=== PATIENT | female | born 1960 | race Caucasian/White ===

== ENCOUNTER 2017-09-25 13:46 | Inpatient (IN) | payer OTHER ==
[2017-09-25 14:30] LABS: AADO2 Arterial 78.2 mmHg (7.0-24.0); Allen Test ACCEPTAB; Arterial Base Excess 6.7 mmol/L (-3.0-3); Arterial Blood Gas Oxygen Sat 98.5 mmHG (95.0-98.0); Arterial COHb 0.3 % (0.0-3.0); Arterial Fraction of Oxyhgb 97.8 % (93.0-99.0); Arterial HCO3 31.5 mmol/L (22.0-26.0); Arterial MetHb 0.4 % (0.0-1.5); Arterial Total Hemglobin 8.8 g/dl (12.0-18.0); Arterial pCO2 46.9 mmhg (35-45); MODE VENTI-COLLAR; Site Right Radial
[2017-09-25] MEDS: SODIUM CHLORIDE 0.9% 1L BAG IV* (14:39)
[2017-09-25 14:42] LABS: ADD MAN DIFF? NO
[2017-09-25 14:47] LABS: WHITE BLOOD COUNT 9.6 10^3/ul (4.8-10.8)
[2017-09-25 14:47] LABS: BASOPHILS % 0.3 % (0.0-2.0); EOSINOPHILS % 0.2 % (0.0-7.0); HEMATOCRIT 24.7 % (37.0-47.0); HEMOGLOBIN 8.4 g/dl (12.0-16.0); LYMPHOCYTES % 20.5 % (15.0-51.0); MEAN CORPUSCULAR HEMOGLOBIN 31.7 pg (29.0-33.0); MEAN CORPUSCULAR VOLUME 93.2 fl (82.0-101.0); MONOCYTE # 0.7 10^3/ul (0.3-0.9); MONOCYTES % 7.4 % (0.0-11.0); NEUTROPHIL # 6.8 10^3/ul (1.6-7.5); NEUTROPHILS % 71.2 % (39.0-77.0); PLATELET COUNT 341 10^3/UL (140-415); RED BLOOD COUNT 2.65 10^6/ul (4.20-5.40); RED CELL DISTRIBUTION WIDTH 12.2 % (11.5-14.5)
[2017-09-25 15:06] LABS: INR 0.83; PROTIME 11.5 Sec (11.9-14.9); PT RATIO 0.9
[2017-09-25 15:07] LABS: PARTIAL THROMBOPLASTIN TIME 26.5 Sec (25.0-35.0)
[2017-09-25 15:15] LABS: ALANINE AMINOTRANSFERASE 47 IU/L (13-69); ALBUMIN 3.7 g/dl (3.3-4.9); ALBUMIN/GLOBULIN RATIO 1.05; ALKALINE PHOSPHATASE 178 IU/L (42-121); ANION GAP 13 (8-16); ASPARTATE AMINO TRANSFERASE 24 IU/L (15-46); BILIRUBIN,INDIRECT 0.1 mg/dl (0-1.1); BILIRUBIN,TOTAL 0.1 mg/dl (0.2-1.3); BLOOD UREA NITROGEN 51 mg/dl (7-20); CALCIUM 10.6 mg/dl (8.4-10.2); CARBON DIOXIDE 32 mmol/L (21-31); CHLORIDE 94 mmol/L (97-110); CREATININE 2.07 mg/dl (0.44-1.00); GLUCOSE 193 mg/dl (70-220); SODIUM 135 mmol/L (135-144); TOTAL PROTEIN 7.2 g/dl (6.1-8.1)
[2017-09-25 15:16] LABS: LACTIC ACID 2.2 mmol/L (0.5-2.0)
[2017-09-25 15:29] LABS: TROPONIN-I < 0.012 ng/ml (0.00-0.12)
[2017-09-25 16:01] LABS: ADD UMIC YES; UR ASCORBIC ACID 20 mg/dL (NEGATIVE); UR BACTERIA FEW /HPF (NONE SEEN); UR BILIRUBIN (Dip) NEGATIVE (NEGATIVE); UR BLOOD (Dip) NEGATIVE (NEGATIVE); UR CLARITY CLOUDY (CLEAR); UR COLOR YELLOW (YELLOW); UR GLUCOSE (Dip) NEGATIVE (NEGATIVE); UR KETONES (Dip) NEGATIVE (NEGATIVE); UR LEUKOCYTE ESTERASE (Dip) 3+ Leu/ul (NEGATIVE); UR NITRITE (Dip) NEGATIVE (NEGATIVE); UR RBC 0 /HPF (0-5); UR SPECIFIC GRAVITY (Dip) 1.005 (1.003-1.030); UR TOTAL PROTEIN (Dip) 2+ mg/dl (NEGATIVE); UR UROBILINOGEN (Dip) NEGATIVE (NEGATIVE); UR WBC 50 /HPF (0-5)
[2017-09-25] MEDS: CEFEPIME 2GM/50 ML (PMX) 50 ML IVPB (16:12)
[2017-09-25] MEDS: VANCOMYCIN 1 GM (PMX) 250 ML IVPB (16:31)
[2017-09-25] MEDS ORDERED: ACETAMINOPHEN 325 MG TAB PO (17:00)
[2017-09-25] MEDS ORDERED: ONDANSETRON 4 MG INJ IV (17:00)
[2017-09-25 17:54] LABS: LACTIC ACID 1.8 mmol/L (0.5-2.0)
[2017-09-25] MEDS ORDERED: NACL 0.9% 3 ML SYG IV (18:30)
[2017-09-25] MEDS ORDERED: MAGNESIUM HYDROXIDE 30ML CUP PO (18:30)
[2017-09-25] MEDS ORDERED: BISACODYL 10 MG SUPP PR (18:30)
[2017-09-25] MEDS ORDERED: VANCOMYCIN IV PER PHARMACY XX (18:30)
[2017-09-25] MEDS: VANCOMYCIN 1 GM in SODIUM CHLORIDE 0.45 % 250 ML IVPB (19:25)
[2017-09-25] MEDS ORDERED: INSULIN ASPART [NOVOLOG] 3 ML PEN SC (21:00)
[2017-09-25] MEDS ORDERED: HEPARIN 1000 UNITS/ML 30 ML INJ SC (21:00)
[2017-09-25] MEDS: METOPROLOL 50 MG TAB GTB (21:00)
[2017-09-25 21:54] LABS: LACTIC ACID 0.8 mmol/L (0.5-2.0)
[2017-09-25] MEDS ORDERED: GLUCOSE GEL 15 GRAM TUBE PO ×2 (22:30)
[2017-09-25] MEDS ORDERED: GLUCOSE GEL 15 GRAM TUBE BUCCAL (22:30)
[2017-09-25] MEDS ORDERED: DEXTROSE 50% 50 ML SYRINGE IV ×2 (22:30)
[2017-09-25] MEDS ORDERED: GLUCAGON 1 MG INJ IM (22:30)
[2017-09-25] MEDS: CHLORHEXIDINE GLUCONATE 15 ML UD CUP MM (22:43)
[2017-09-25] MEDS: SOD CHLORIDE 0.9% 1,000 ML IV (22:43)
[2017-09-25] MEDS: CEFEPIME 1GM/50 ML (PMX) 50 ML IVPB (22:44)
[2017-09-25] MEDS: LACTOBACILLUS RHAMNOSUS CAP PO (23:52)
[2017-09-25] MEDS: HEPARIN 5,000 UNIT/0.5 ML VIAL SC (23:54)
[2017-09-26] MEDS: INSULIN ASPART [NOVOLOG] 3 ML PEN SC ×6 (01:00→20:02)
[2017-09-26] MEDS ORDERED: ACCU-CHEK XX (02:00)
[2017-09-26] MEDS: LANSOPRAZOLE 30 MG CAP GTB (05:39)
[2017-09-26 06:19] LABS: ADD MAN DIFF? NO
[2017-09-26 06:23] LABS: WHITE BLOOD COUNT 7.9 10^3/ul (4.8-10.8)
[2017-09-26 06:23] LABS: BASOPHILS % 0.4 % (0.0-2.0); EOSINOPHILS # 0.1 10^3/ul (0.0-0.5); EOSINOPHILS % 1.3 % (0.0-7.0); HEMATOCRIT 21.7 % (37.0-47.0); HEMOGLOBIN 7.2 g/dl (12.0-16.0); LYMPHOCYTES # 2.3 10^3/ul (0.8-2.9); LYMPHOCYTES % 29.6 % (15.0-51.0); MEAN CORPUSCULAR HEMOGLOBIN 31.7 pg (29.0-33.0); MEAN CORPUSCULAR HGB CONC 33.2 g/dl (32.0-37.0); MEAN CORPUSCULAR VOLUME 95.6 fl (82.0-101.0); MEAN PLATELET VOLUME 10.1 fl (7.4-10.4); MONOCYTE # 0.6 10^3/ul (0.3-0.9); MONOCYTES % 8.2 % (0.0-11.0); NEUTROPHIL # 4.7 10^3/ul (1.6-7.5); NEUTROPHILS % 60.2 % (39.0-77.0); PLATELET COUNT 300 10^3/UL (140-415); RED BLOOD COUNT 2.27 10^6/ul (4.20-5.40); RED CELL DISTRIBUTION WIDTH 12.4 % (11.5-14.5)
[2017-09-26 07:03] LABS: ALBUMIN 3.1 g/dl (3.3-4.9); ANION GAP 11 (8-16); BLOOD UREA NITROGEN 40 mg/dl (7-20); CALCIUM 9.6 mg/dl (8.4-10.2); CARBON DIOXIDE 28 mmol/L (21-31); CHLORIDE 107 mmol/L (97-110); CREATININE 1.83 mg/dl (0.44-1.00); GLUCOSE 181 mg/dl (70-220); MAGNESIUM 1.9 mg/dl (1.7-2.5); PHOSPHORUS 2.3 mg/dl (2.5-4.9); POTASSIUM 3.8 mmol/L (3.5-5.1); SODIUM 142 mmol/L (135-144)
[2017-09-26 07:10] LABS: HEMOGLOBIN A1C 6.2 % (0-5.9)
[2017-09-26] MEDS: METOPROLOL 50 MG TAB GTB ×2 (09:00→20:03)
[2017-09-26] MEDS ORDERED: HEPARIN 5,000 UNIT/0.5 ML VIAL SC (09:00)
[2017-09-26] MEDS: MULTIVIT/CA CARB/B CMPLX/FA TAB PO (09:02)
[2017-09-26] MEDS: LACTOBACILLUS RHAMNOSUS CAP PO ×2 (09:02→20:03)
[2017-09-26] MEDS: CHLORHEXIDINE GLUCONATE 15 ML UD CUP MM ×2 (09:02→20:04)
[2017-09-26] MEDS: ASCORBIC ACID 500 MG TAB GTB (09:02)
[2017-09-26] MEDS: CEFEPIME 1GM/50 ML (PMX) 50 ML IVPB ×2 (09:02→20:04)
[2017-09-26] MEDS: FERROUS SULFATE 60 MG/ML 5ML CUP GTB (09:03)
[2017-09-26] MEDS: HEPARIN 5,000 UNIT/0.5 ML VIAL SC ×2 (09:13→20:08)
[2017-09-26] MEDS: INSULIN GLARGINE [LANtus] 3 ML PEN SC (09:13)
[2017-09-26] MEDS: ACETAMINOPHEN 650MG/20.3ML CUP GTB (09:52)
[2017-09-26 11:46] LABS: IRON 74 ug/dl (35-150)
[2017-09-26 11:55] LABS: % IRON SATURATION 29 % SAT (22-52); TOTAL IRON BINDING CAPACITY 257 ug/dl (241-421)
[2017-09-26] MEDS ORDERED: ACETAMINOPHEN 650 MG SUPP PR (12:00)
[2017-09-26] MEDS: SOD CHLORIDE 0.9% 1,000 ML IV (12:20)
[2017-09-26 16:18] LABS: POTASSIUM,URINE RANDOM 19.7 mmol/L (25-125)
[2017-09-26 16:18] LABS: SODIUM,URINE RANDOM 64 mmol/L (30-90)
[2017-09-26] MEDS ORDERED: VANCOMYCIN 1.25 GM in SODIUM CHLORIDE 0.45 % 250 ML IVPB (17:00)
[2017-09-26] MEDS: VANCOMYCIN 1 GM 250 ML IVPB (17:49)
[2017-09-26 18:44] LABS: OSMOLALITY,URINE 366 mOsm/kg (250-1200)
[2017-09-27] MEDS: INSULIN ASPART [NOVOLOG] 3 ML PEN SC ×6 (01:00→21:00)
[2017-09-27] MEDS: LANSOPRAZOLE 30 MG CAP GTB (05:14)
[2017-09-27] MEDS: SOD CHLORIDE 0.9% 1,000 ML IV ×2 (05:14→20:50)
[2017-09-27 05:59] LABS: ADD MAN DIFF? NO
[2017-09-27 06:09] LABS: WHITE BLOOD COUNT 9.7 10^3/ul (4.8-10.8)
[2017-09-27 06:09] LABS: BASOPHILS % 0.4 % (0.0-2.0); EOSINOPHILS # 0.2 10^3/ul (0.0-0.5); EOSINOPHILS % 1.6 % (0.0-7.0); HEMATOCRIT 23.1 % (37.0-47.0); HEMOGLOBIN 7.5 g/dl (12.0-16.0); LYMPHOCYTES # 2.8 10^3/ul (0.8-2.9); LYMPHOCYTES % 29.4 % (15.0-51.0); MEAN CORPUSCULAR HEMOGLOBIN 31.1 pg (29.0-33.0); MEAN CORPUSCULAR HGB CONC 32.5 g/dl (32.0-37.0); MEAN CORPUSCULAR VOLUME 95.9 fl (82.0-101.0); MEAN PLATELET VOLUME 10.5 fl (7.4-10.4); MONOCYTE # 0.8 10^3/ul (0.3-0.9); MONOCYTES % 8.5 % (0.0-11.0); NEUTROPHIL # 5.8 10^3/ul (1.6-7.5); NEUTROPHILS % 59.8 % (39.0-77.0); PLATELET COUNT 301 10^3/UL (140-415); RED BLOOD COUNT 2.41 10^6/ul (4.20-5.40); RED CELL DISTRIBUTION WIDTH 12.9 % (11.5-14.5)
[2017-09-27 06:48] LABS: ALBUMIN 3.1 g/dl (3.3-4.9); ANION GAP 13 (8-16); BLOOD UREA NITROGEN 36 mg/dl (7-20); CALCIUM 9.9 mg/dl (8.4-10.2); CARBON DIOXIDE 27 mmol/L (21-31); CHLORIDE 110 mmol/L (97-110); CREATININE 1.79 mg/dl (0.44-1.00); GLUCOSE 141 mg/dl (70-220); PHOSPHORUS 2.7 mg/dl (2.5-4.9); POTASSIUM 3.6 mmol/L (3.5-5.1); SODIUM 146 mmol/L (135-144)
[2017-09-27] MEDS: METOPROLOL 50 MG TAB GTB ×2 (09:38→21:00)
[2017-09-27] MEDS: LACTOBACILLUS RHAMNOSUS CAP PO ×2 (09:38→20:55)
[2017-09-27] MEDS: MULTIVIT/CA CARB/B CMPLX/FA TAB PO (09:38)
[2017-09-27] MEDS: CEFEPIME 1GM/50 ML (PMX) 50 ML IVPB (09:39)
[2017-09-27] MEDS: ASCORBIC ACID 500 MG TAB GTB (09:39)
[2017-09-27] MEDS: FERROUS SULFATE 60 MG/ML 5ML CUP GTB (09:39)
[2017-09-27] MEDS: CHLORHEXIDINE GLUCONATE 15 ML UD CUP MM ×2 (09:39→20:55)
[2017-09-27] MEDS: HEPARIN 5,000 UNIT/0.5 ML VIAL SC ×2 (09:50→21:02)
[2017-09-27] MEDS: INSULIN GLARGINE [LANtus] 3 ML PEN SC (09:50)
[2017-09-27] MEDS ORDERED: DAPTOMYCIN 350 MG in SOD CHLORIDE 0.9% 100 ML IVPB (12:00)
[2017-09-27] MEDS ORDERED: AMIKACIN IV PER PHARMACY XX (12:00)
[2017-09-27] MEDS: ZYVOX 600 MG TAB PO ×2 (13:09→21:00)
[2017-09-27] MEDS: AMIKACIN 350 MG in DEXTROSE 5% 100 ML IVPB (15:22)
[2017-09-28] MEDS: SOD CHLORIDE 0.9% 1,000 ML IV ×2 (00:54→17:17)
[2017-09-28] MEDS: INSULIN ASPART [NOVOLOG] 3 ML PEN SC ×6 (01:00→20:49)
[2017-09-28] MEDS: LANSOPRAZOLE 30 MG CAP GTB (05:17)
[2017-09-28 05:58] LABS: ADD MAN DIFF? NO
[2017-09-28 05:59] LABS: WHITE BLOOD COUNT 8.8 10^3/ul (4.8-10.8)
[2017-09-28 05:59] LABS: BASOPHILS % 0.5 % (0.0-2.0); EOSINOPHILS # 0.2 10^3/ul (0.0-0.5); EOSINOPHILS % 2.6 % (0.0-7.0); HEMOGLOBIN 7.7 g/dl (12.0-16.0); LYMPHOCYTES # 3.8 10^3/ul (0.8-2.9); MEAN CORPUSCULAR HEMOGLOBIN 31.6 pg (29.0-33.0); MEAN CORPUSCULAR HGB CONC 33.5 g/dl (32.0-37.0); MEAN CORPUSCULAR VOLUME 94.3 fl (82.0-101.0); MEAN PLATELET VOLUME 10.3 fl (7.4-10.4); MONOCYTE # 0.7 10^3/ul (0.3-0.9); NEUTROPHILS % 45.7 % (39.0-77.0); PLATELET COUNT 303 10^3/UL (140-415); RED BLOOD COUNT 2.44 10^6/ul (4.20-5.40); RED CELL DISTRIBUTION WIDTH 12.7 % (11.5-14.5)
[2017-09-28 06:36] LABS: ALBUMIN 3.1 g/dl (3.3-4.9); ANION GAP 9 (8-16); BLOOD UREA NITROGEN 27 mg/dl (7-20); CARBON DIOXIDE 29 mmol/L (21-31); CHLORIDE 109 mmol/L (97-110); CREATININE 1.64 mg/dl (0.44-1.00); GLUCOSE 122 mg/dl (70-220); MAGNESIUM 1.8 mg/dl (1.7-2.5); PHOSPHORUS 3.4 mg/dl (2.5-4.9); POTASSIUM 3.4 mmol/L (3.5-5.1); SODIUM 144 mmol/L (135-144)
[2017-09-28] MEDS: CHLORHEXIDINE GLUCONATE 15 ML UD CUP MM ×2 (09:13→20:41)
[2017-09-28] MEDS: POTASSIUM CHLORIDE 20 MEQ POWDER FOR ORAL SOLN GTB (09:13)
[2017-09-28] MEDS: ZYVOX 600 MG TAB PO ×2 (09:14→20:41)
[2017-09-28] MEDS: LACTOBACILLUS RHAMNOSUS CAP PO ×2 (09:14→20:41)
[2017-09-28] MEDS: MULTIVIT/CA CARB/B CMPLX/FA TAB PO (09:14)
[2017-09-28] MEDS: ASCORBIC ACID 500 MG TAB GTB (09:14)
[2017-09-28] MEDS: FERROUS SULFATE 60 MG/ML 5ML CUP GTB (09:15)
[2017-09-28] MEDS: METOPROLOL 50 MG TAB GTB ×2 (09:15→20:41)
[2017-09-28] MEDS: HEPARIN 5,000 UNIT/0.5 ML VIAL SC ×2 (09:44→20:49)
[2017-09-28] MEDS: INSULIN GLARGINE [LANtus] 3 ML PEN SC (09:44)
[2017-09-28] MEDS: hydrALAzine 20 MG INJ IV (23:23)
[2017-09-29] MEDS: FUROSEMIDE 20 MG INJ IV (01:48)
[2017-09-29] MEDS: AMIKACIN 350 MG in DEXTROSE 5% 100 ML IVPB (01:49)
[2017-09-29] MEDS: INSULIN ASPART [NOVOLOG] 3 ML PEN SC ×6 (02:05→20:48)
[2017-09-29] MEDS: LANSOPRAZOLE 30 MG CAP GTB (05:16)
[2017-09-29] MEDS: CHLORHEXIDINE GLUCONATE 15 ML UD CUP MM ×2 (08:14→21:49)
[2017-09-29] MEDS: FERROUS SULFATE 60 MG/ML 5ML CUP GTB (08:14)
[2017-09-29] MEDS: ASCORBIC ACID 500 MG TAB GTB (08:14)
[2017-09-29] MEDS: LACTOBACILLUS RHAMNOSUS CAP PO ×2 (08:15→21:49)
[2017-09-29] MEDS: METOPROLOL 50 MG TAB GTB ×2 (08:15→21:49)
[2017-09-29] MEDS: ZYVOX 600 MG TAB PO ×2 (08:15→21:49)
[2017-09-29] MEDS: MULTIVIT/CA CARB/B CMPLX/FA TAB PO (08:15)
[2017-09-29] MEDS: INSULIN GLARGINE [LANtus] 3 ML PEN SC (08:25)
[2017-09-29] MEDS: HEPARIN 5,000 UNIT/0.5 ML VIAL SC ×2 (08:25→21:51)
[2017-09-29] MEDS: ALBUTEROL 0.083% (NEB) 2.5 MG/3 ML AMP NEB (16:02)
[2017-09-30] MEDS: INSULIN ASPART [NOVOLOG] 3 ML PEN SC ×6 (01:00→20:41)
[2017-09-30] MEDS: hydrALAzine 20 MG INJ IV (01:35)
[2017-09-30] MEDS: LANSOPRAZOLE 30 MG CAP GTB (05:41)
[2017-09-30 06:15] LABS: ADD MAN DIFF? NO
[2017-09-30 06:28] LABS: WHITE BLOOD COUNT 9.7 10^3/ul (4.8-10.8)
[2017-09-30 06:28] LABS: BASOPHILS % 0.3 % (0.0-2.0); EOSINOPHILS # 0.2 10^3/ul (0.0-0.5); EOSINOPHILS % 2.3 % (0.0-7.0); HEMATOCRIT 23.8 % (37.0-47.0); HEMOGLOBIN 7.9 g/dl (12.0-16.0); LYMPHOCYTES # 4.6 10^3/ul (0.8-2.9); MEAN CORPUSCULAR HEMOGLOBIN 31.6 pg (29.0-33.0); MEAN CORPUSCULAR HGB CONC 33.2 g/dl (32.0-37.0); MEAN CORPUSCULAR VOLUME 95.2 fl (82.0-101.0); MEAN PLATELET VOLUME 10.8 fl (7.4-10.4); MONOCYTE # 0.8 10^3/ul (0.3-0.9); MONOCYTES % 7.7 % (0.0-11.0); NEUTROPHIL # 4.1 10^3/ul (1.6-7.5); NEUTROPHILS % 42.5 % (39.0-77.0); PLATELET COUNT 318 10^3/UL (140-415); RED CELL DISTRIBUTION WIDTH 13.1 % (11.5-14.5)
[2017-09-30 07:00] LABS: ALBUMIN 3.1 g/dl (3.3-4.9); ANION GAP 13 (8-16); BLOOD UREA NITROGEN 31 mg/dl (7-20); CALCIUM 9.3 mg/dl (8.4-10.2); CARBON DIOXIDE 30 mmol/L (21-31); CHLORIDE 108 mmol/L (97-110); CREATININE 1.77 mg/dl (0.44-1.00); GLUCOSE 148 mg/dl (70-220); MAGNESIUM 1.9 mg/dl (1.7-2.5); PHOSPHORUS 3.7 mg/dl (2.5-4.9); POTASSIUM 3.6 mmol/L (3.5-5.1); SODIUM 147 mmol/L (135-144)
[2017-09-30] MEDS: ZYVOX 600 MG TAB PO ×2 (08:10→20:40)
[2017-09-30] MEDS: MULTIVIT/CA CARB/B CMPLX/FA TAB PO (08:10)
[2017-09-30] MEDS: LACTOBACILLUS RHAMNOSUS CAP PO ×2 (08:10→20:40)
[2017-09-30] MEDS: ASCORBIC ACID 500 MG TAB GTB (08:10)
[2017-09-30] MEDS: FERROUS SULFATE 60 MG/ML 5ML CUP GTB (08:10)
[2017-09-30] MEDS: CHLORHEXIDINE GLUCONATE 15 ML UD CUP MM ×2 (08:10→20:40)
[2017-09-30] MEDS: METOPROLOL 50 MG TAB GTB ×2 (08:12→20:42)
[2017-09-30] MEDS: HEPARIN 5,000 UNIT/0.5 ML VIAL SC ×2 (08:25→20:43)
[2017-09-30] MEDS: INSULIN GLARGINE [LANtus] 3 ML PEN SC (08:25)
[2017-09-30] MEDS: AMLODIPINE 5 MG TAB GTB ×2 (11:26→16:34)
[2017-09-30] MEDS: *AMIKACIN TROUGH & PEAK XX (13:30)
[2017-09-30] MEDS: AMIKACIN 350 MG in DEXTROSE 5% 100 ML IVPB (14:32)
[2017-10-01] MEDS: INSULIN ASPART [NOVOLOG] 3 ML PEN SC ×6 (01:00→21:00)
[2017-10-01] MEDS: LANSOPRAZOLE 30 MG CAP GTB (05:42)
[2017-10-01 06:58] LABS: WHITE BLOOD COUNT 15.1 10^3/ul (4.8-10.8)
[2017-10-01 06:58] LABS: ABNORMAL IP MESSAGE 1; HEMATOCRIT 28.1 % (37.0-47.0); HEMOGLOBIN 9.1 g/dl (12.0-16.0); MEAN CORPUSCULAR HEMOGLOBIN 31.7 pg (29.0-33.0); MEAN CORPUSCULAR HGB CONC 32.4 g/dl (32.0-37.0); MEAN CORPUSCULAR VOLUME 97.9 fl (82.0-101.0); MEAN PLATELET VOLUME 12.1 fl (7.4-10.4); PLATELET COUNT 246 10^3/UL (140-415); RED BLOOD COUNT 2.87 10^6/ul (4.20-5.40); RED CELL DISTRIBUTION WIDTH 13.2 % (11.5-14.5)
[2017-10-01 07:01] LABS: POSITIVE DIFF @See below
[2017-10-01 07:02] LABS: ADD MAN DIFF? YES
[2017-10-01 07:24] LABS: ALBUMIN 3.7 g/dl (3.3-4.9); ANION GAP 18 (8-16); BLOOD UREA NITROGEN 32 mg/dl (7-20); CALCIUM 9.5 mg/dl (8.4-10.2); CARBON DIOXIDE 25 mmol/L (21-31); CHLORIDE 107 mmol/L (97-110); CREATININE 1.82 mg/dl (0.44-1.00); GLUCOSE 159 mg/dl (70-220); MAGNESIUM 2.1 mg/dl (1.7-2.5); PHOSPHORUS 3.7 mg/dl (2.5-4.9); POTASSIUM 4.1 mmol/L (3.5-5.1); SODIUM 146 mmol/L (135-144)
[2017-10-01 09:20] LABS: EOSINOPHILS % (M) 1 % (0-7); LYMPHOCYTES % (M) 60 % (15-51); MONOCYTE #M 0.6 10^3/ul (0.3-0.9); MONOCYTES % (M) 4 % (0-11); PLATELET ESTIMATE NORMAL; REACTIVE LYMPHOCYTES #M 0.4 10^3/ul (0.0-0.0); REACTIVE LYMPHOCYTES% (M) 3 % (0-0); SEGMENTED NEUTROPHILS (M) % 32 % (39-77); SMUDGE%M 7 % (0-0)
[2017-10-01] MEDS: FERROUS SULFATE 60 MG/ML 5ML CUP GTB (09:25)
[2017-10-01] MEDS: MULTIVIT/CA CARB/B CMPLX/FA TAB PO (09:25)
[2017-10-01] MEDS: ASCORBIC ACID 500 MG TAB GTB (09:26)
[2017-10-01] MEDS: LACTOBACILLUS RHAMNOSUS CAP PO ×2 (09:26→21:18)
[2017-10-01] MEDS: ZYVOX 600 MG TAB PO ×2 (09:26→21:19)
[2017-10-01] MEDS: CHLORHEXIDINE GLUCONATE 15 ML UD CUP MM ×2 (09:27→21:17)
[2017-10-01] MEDS: METOPROLOL 50 MG TAB GTB ×2 (09:27→21:19)
[2017-10-01] MEDS: AMLODIPINE 10 MG TAB GTB (09:27)
[2017-10-01] MEDS: HEPARIN 5,000 UNIT/0.5 ML VIAL SC ×2 (09:32→21:21)
[2017-10-01] MEDS: INSULIN GLARGINE [LANtus] 3 ML PEN SC (09:44)
[2017-10-01] MEDS: ACETAMINOPHEN 650MG/20.3ML CUP GTB (13:37)
[2017-10-02] MEDS: INSULIN ASPART [NOVOLOG] 3 ML PEN SC ×6 (01:00→20:51)
[2017-10-02] MEDS: AMIKACIN 350 MG in DEXTROSE 5% 100 ML IVPB (02:04)
[2017-10-02] MEDS: LANSOPRAZOLE 30 MG CAP GTB (05:48)
[2017-10-02 07:22] LABS: ADD MAN DIFF? NO
[2017-10-02 07:26] LABS: WHITE BLOOD COUNT 7.6 10^3/ul (4.8-10.8)
[2017-10-02 07:26] LABS: BASOPHILS % 0.5 % (0.0-2.0); EOSINOPHILS # 0.2 10^3/ul (0.0-0.5); EOSINOPHILS % 2.6 % (0.0-7.0); HEMATOCRIT 22.4 % (37.0-47.0); HEMOGLOBIN 7.5 g/dl (12.0-16.0); LYMPHOCYTES # 3.3 10^3/ul (0.8-2.9); LYMPHOCYTES % 43.2 % (15.0-51.0); MEAN CORPUSCULAR HEMOGLOBIN 32.3 pg (29.0-33.0); MEAN CORPUSCULAR HGB CONC 33.5 g/dl (32.0-37.0); MEAN CORPUSCULAR VOLUME 96.6 fl (82.0-101.0); MEAN PLATELET VOLUME 11.1 fl (7.4-10.4); MONOCYTE # 0.6 10^3/ul (0.3-0.9); MONOCYTES % 8.4 % (0.0-11.0); NEUTROPHIL # 3.5 10^3/ul (1.6-7.5); NEUTROPHILS % 45.2 % (39.0-77.0); PLATELET COUNT 282 10^3/UL (140-415); RED BLOOD COUNT 2.32 10^6/ul (4.20-5.40); RED CELL DISTRIBUTION WIDTH 13.3 % (11.5-14.5)
[2017-10-02 08:03] LABS: ALBUMIN 2.9 g/dl (3.3-4.9); ANION GAP 8 (8-16); BLOOD UREA NITROGEN 37 mg/dl (7-20); CARBON DIOXIDE 32 mmol/L (21-31); CHLORIDE 105 mmol/L (97-110); CREATININE 1.98 mg/dl (0.44-1.00); GLUCOSE 149 mg/dl (70-220); MAGNESIUM 2.1 mg/dl (1.7-2.5); PHOSPHORUS 3.9 mg/dl (2.5-4.9); POTASSIUM 3.4 mmol/L (3.5-5.1); SODIUM 142 mmol/L (135-144)
[2017-10-02] MEDS: ZYVOX 600 MG TAB PO ×2 (08:35→20:55)
[2017-10-02] MEDS: MULTIVIT/CA CARB/B CMPLX/FA TAB PO (08:35)
[2017-10-02] MEDS: ASCORBIC ACID 500 MG TAB GTB (08:35)
[2017-10-02] MEDS: LACTOBACILLUS RHAMNOSUS CAP PO ×2 (08:36→20:54)
[2017-10-02] MEDS: METOPROLOL 50 MG TAB GTB ×2 (08:36→20:56)
[2017-10-02] MEDS: AMLODIPINE 10 MG TAB GTB (08:37)
[2017-10-02] MEDS: CHLORHEXIDINE GLUCONATE 15 ML UD CUP MM ×2 (08:37→20:56)
[2017-10-02] MEDS: FERROUS SULFATE 60 MG/ML 5ML CUP GTB (08:37)
[2017-10-02] MEDS: HEPARIN 5,000 UNIT/0.5 ML VIAL SC ×2 (08:38→20:55)
[2017-10-02] MEDS: INSULIN GLARGINE [LANtus] 3 ML PEN SC (08:58)
[2017-10-02] MEDS: POTASSIUM CHLORIDE 20 MEQ POWDER FOR ORAL SOLN GTB (11:09)
[2017-10-02] MEDS: EPOETIN 10000 UNITS/1 ML INJ (ESRD) SC (11:10)
[2017-10-03] MEDS: INSULIN ASPART [NOVOLOG] 3 ML PEN SC ×5 (01:00→17:38)
[2017-10-03] MEDS: LANSOPRAZOLE 30 MG CAP GTB (05:08)
[2017-10-03 06:26] LABS: ADD MAN DIFF? NO
[2017-10-03 06:44] LABS: WHITE BLOOD COUNT 7.4 10^3/ul (4.8-10.8)
[2017-10-03 06:44] LABS: BASOPHILS % 0.5 % (0.0-2.0); EOSINOPHILS # 0.2 10^3/ul (0.0-0.5); EOSINOPHILS % 2.7 % (0.0-7.0); HEMATOCRIT 22.7 % (37.0-47.0); HEMOGLOBIN 7.6 g/dl (12.0-16.0); LYMPHOCYTES # 3.5 10^3/ul (0.8-2.9); LYMPHOCYTES % 47.5 % (15.0-51.0); MEAN CORPUSCULAR HEMOGLOBIN 32.1 pg (29.0-33.0); MEAN CORPUSCULAR HGB CONC 33.5 g/dl (32.0-37.0); MEAN CORPUSCULAR VOLUME 95.8 fl (82.0-101.0); MEAN PLATELET VOLUME 10.9 fl (7.4-10.4); MONOCYTE # 0.6 10^3/ul (0.3-0.9); MONOCYTES % 7.8 % (0.0-11.0); NEUTROPHIL # 3.1 10^3/ul (1.6-7.5); NEUTROPHILS % 41.4 % (39.0-77.0); PLATELET COUNT 283 10^3/UL (140-415); RED BLOOD COUNT 2.37 10^6/ul (4.20-5.40); RED CELL DISTRIBUTION WIDTH 13.2 % (11.5-14.5)
[2017-10-03 07:11] LABS: ANION GAP 13 (8-16); BLOOD UREA NITROGEN 36 mg/dl (7-20); CALCIUM 8.8 mg/dl (8.4-10.2); CARBON DIOXIDE 29 mmol/L (21-31); CHLORIDE 107 mmol/L (97-110); GLUCOSE 96 mg/dl (70-220); MAGNESIUM 2.2 mg/dl (1.7-2.5); POTASSIUM 3.8 mmol/L (3.5-5.1); SODIUM 145 mmol/L (135-144)
[2017-10-03] MEDS: FERROUS SULFATE 60 MG/ML 5ML CUP GTB (09:55)
[2017-10-03] MEDS: CHLORHEXIDINE GLUCONATE 15 ML UD CUP MM ×2 (09:55→20:15)
[2017-10-03] MEDS: MULTIVIT/CA CARB/B CMPLX/FA TAB PO (09:55)
[2017-10-03] MEDS: ZYVOX 600 MG TAB PO ×2 (09:55→20:15)
[2017-10-03] MEDS: ASCORBIC ACID 500 MG TAB GTB (09:55)
[2017-10-03] MEDS: LACTOBACILLUS RHAMNOSUS CAP PO ×2 (09:55→20:15)
[2017-10-03] MEDS: METOPROLOL 50 MG TAB GTB ×2 (09:56→20:15)
[2017-10-03] MEDS: AMLODIPINE 10 MG TAB GTB (09:57)
[2017-10-03] MEDS: HEPARIN 5,000 UNIT/0.5 ML VIAL SC ×2 (10:05→20:18)
[2017-10-03] MEDS: INSULIN GLARGINE [LANtus] 3 ML PEN SC (10:13)
[2017-10-03] MEDS: AMIKACIN 350 MG in DEXTROSE 5% 100 ML IVPB (14:06)
[2017-10-04] MEDS: LANSOPRAZOLE 30 MG CAP GTB (05:30)
[2017-10-04] MEDS: INSULIN ASPART [NOVOLOG] 3 ML PEN SC ×4 (05:31→17:45)
[2017-10-04 06:14] LABS: ADD MAN DIFF? NO
[2017-10-04 06:28] LABS: BASOPHILS % 0.3 % (0.0-2.0); EOSINOPHILS # 0.2 10^3/ul (0.0-0.5); EOSINOPHILS % 2.3 % (0.0-7.0); HEMATOCRIT 25.6 % (37.0-47.0); HEMOGLOBIN 8.4 g/dl (12.0-16.0); LYMPHOCYTES # 3.1 10^3/ul (0.8-2.9); LYMPHOCYTES % 44.5 % (15.0-51.0); MEAN CORPUSCULAR HEMOGLOBIN 31.5 pg (29.0-33.0); MEAN CORPUSCULAR HGB CONC 32.8 g/dl (32.0-37.0); MEAN CORPUSCULAR VOLUME 95.9 fl (82.0-101.0); MEAN PLATELET VOLUME 10.9 fl (7.4-10.4); MONOCYTE # 0.6 10^3/ul (0.3-0.9); MONOCYTES % 8.5 % (0.0-11.0); NEUTROPHIL # 3.1 10^3/ul (1.6-7.5); PLATELET COUNT 298 10^3/UL (140-415); RED BLOOD COUNT 2.67 10^6/ul (4.20-5.40); RED CELL DISTRIBUTION WIDTH 13.3 % (11.5-14.5)
[2017-10-04 06:28] LABS: WHITE BLOOD COUNT 6.9 10^3/ul (4.8-10.8)
[2017-10-04 07:40] LABS: ANION GAP 11 (8-16); BLOOD UREA NITROGEN 36 mg/dl (7-20); CALCIUM 9.2 mg/dl (8.4-10.2); CARBON DIOXIDE 30 mmol/L (21-31); CHLORIDE 105 mmol/L (97-110); CREATININE 2.03 mg/dl (0.44-1.00); GLUCOSE 117 mg/dl (70-220); MAGNESIUM 2.3 mg/dl (1.7-2.5); PHOSPHORUS 4.4 mg/dl (2.5-4.9); POTASSIUM 4.1 mmol/L (3.5-5.1); SODIUM 142 mmol/L (135-144)
[2017-10-04] MEDS: ZYVOX 600 MG TAB PO (09:12)
[2017-10-04] MEDS: CHLORHEXIDINE GLUCONATE 15 ML UD CUP MM ×2 (09:12→21:03)
[2017-10-04] MEDS: MULTIVIT/CA CARB/B CMPLX/FA TAB PO (09:12)
[2017-10-04] MEDS: ASCORBIC ACID 500 MG TAB GTB (09:13)
[2017-10-04] MEDS: LACTOBACILLUS RHAMNOSUS CAP PO ×2 (09:13→21:04)
[2017-10-04] MEDS: AMLODIPINE 10 MG TAB GTB (09:14)
[2017-10-04] MEDS: METOPROLOL 50 MG TAB GTB ×2 (09:14→21:03)
[2017-10-04] MEDS: HEPARIN 5,000 UNIT/0.5 ML VIAL SC ×2 (09:16→21:08)
[2017-10-04] MEDS: FERROUS SULFATE 60 MG/ML 5ML CUP GTB (09:18)
[2017-10-04] MEDS: INSULIN GLARGINE [LANtus] 3 ML PEN SC (09:18)
[2017-10-05] MEDS: LANSOPRAZOLE 30 MG CAP GTB (06:08)
[2017-10-05] MEDS: INSULIN ASPART [NOVOLOG] 3 ML PEN SC ×4 (06:15→17:54)
[2017-10-05 06:22] LABS: ADD MAN DIFF? NO
[2017-10-05 06:35] LABS: BASOPHILS % 0.2 % (0.0-2.0); EOSINOPHILS # 0.1 10^3/ul (0.0-0.5); EOSINOPHILS % 1.3 % (0.0-7.0); HEMOGLOBIN 8.4 g/dl (12.0-16.0); LYMPHOCYTES # 3.6 10^3/ul (0.8-2.9); LYMPHOCYTES % 42.7 % (15.0-51.0); MEAN CORPUSCULAR HEMOGLOBIN 31.7 pg (29.0-33.0); MEAN CORPUSCULAR HGB CONC 32.3 g/dl (32.0-37.0); MEAN CORPUSCULAR VOLUME 98.1 fl (82.0-101.0); MONOCYTE # 0.7 10^3/ul (0.3-0.9); MONOCYTES % 7.8 % (0.0-11.0); NEUTROPHILS % 47.8 % (39.0-77.0); PLATELET COUNT 290 10^3/UL (140-415); RED BLOOD COUNT 2.65 10^6/ul (4.20-5.40); RED CELL DISTRIBUTION WIDTH 13.6 % (11.5-14.5)
[2017-10-05 06:35] LABS: WHITE BLOOD COUNT 8.4 10^3/ul (4.8-10.8)
[2017-10-05 07:07] LABS: ANION GAP 15 (8-16); BLOOD UREA NITROGEN 40 mg/dl (7-20); CALCIUM 8.8 mg/dl (8.4-10.2); CARBON DIOXIDE 30 mmol/L (21-31); CHLORIDE 104 mmol/L (97-110); CREATININE 2.16 mg/dl (0.44-1.00); GLUCOSE 138 mg/dl (70-220); MAGNESIUM 2.5 mg/dl (1.7-2.5); PHOSPHORUS 4.8 mg/dl (2.5-4.9); POTASSIUM 3.7 mmol/L (3.5-5.1); SODIUM 145 mmol/L (135-144)
[2017-10-05] MEDS: METOPROLOL 50 MG TAB GTB ×2 (09:56→21:41)
[2017-10-05] MEDS: LACTOBACILLUS RHAMNOSUS CAP PO ×2 (09:56→21:40)
[2017-10-05] MEDS: MULTIVIT/CA CARB/B CMPLX/FA TAB PO (09:56)
[2017-10-05] MEDS: AMLODIPINE 10 MG TAB GTB (09:56)
[2017-10-05] MEDS: ASCORBIC ACID 500 MG TAB GTB (09:57)
[2017-10-05] MEDS: CHLORHEXIDINE GLUCONATE 15 ML UD CUP MM ×2 (09:57→21:40)
[2017-10-05] MEDS: FERROUS SULFATE 60 MG/ML 5ML CUP GTB (09:57)
[2017-10-05] MEDS: HEPARIN 5,000 UNIT/0.5 ML VIAL SC ×2 (09:58→21:42)
[2017-10-05] MEDS: INSULIN GLARGINE [LANtus] 3 ML PEN SC (09:59)
[2017-10-06] MEDS: LANSOPRAZOLE 30 MG CAP GTB (06:08)
[2017-10-06] MEDS: INSULIN ASPART [NOVOLOG] 3 ML PEN SC ×5 (06:08→23:59)
[2017-10-06 06:48] LABS: ANION GAP 10 (8-16); BLOOD UREA NITROGEN 39 mg/dl (7-20); CALCIUM 8.9 mg/dl (8.4-10.2); CARBON DIOXIDE 29 mmol/L (21-31); CHLORIDE 105 mmol/L (97-110); CREATININE 2.01 mg/dl (0.44-1.00); GLUCOSE 156 mg/dl (70-220); MAGNESIUM 2.5 mg/dl (1.7-2.5); POTASSIUM 3.8 mmol/L (3.5-5.1); SODIUM 140 mmol/L (135-144)
[2017-10-06] MEDS: MULTIVIT/CA CARB/B CMPLX/FA TAB PO (09:59)
[2017-10-06] MEDS: METOPROLOL 50 MG TAB GTB ×2 (10:00→20:46)
[2017-10-06] MEDS: ASCORBIC ACID 500 MG TAB GTB (10:00)
[2017-10-06] MEDS: CHLORHEXIDINE GLUCONATE 15 ML UD CUP MM ×2 (10:01→20:46)
[2017-10-06] MEDS: AMLODIPINE 10 MG TAB GTB (10:01)
[2017-10-06] MEDS: FERROUS SULFATE 60 MG/ML 5ML CUP GTB (10:01)
[2017-10-06] MEDS: HEPARIN 5,000 UNIT/0.5 ML VIAL SC ×2 (10:05→20:48)
[2017-10-06] MEDS: INSULIN GLARGINE [LANtus] 3 ML PEN SC (10:05)
[2017-10-06] MEDS: LACTOBACILLUS RHAMNOSUS CAP PO ×2 (10:15→20:45)
[2017-10-07] MEDS: LANSOPRAZOLE 30 MG CAP GTB (06:04)
[2017-10-07] MEDS: INSULIN ASPART [NOVOLOG] 3 ML PEN SC ×3 (06:07→17:22)
[2017-10-07 06:19] LABS: ADD MAN DIFF? NO
[2017-10-07 06:48] LABS: WHITE BLOOD COUNT 7.9 10^3/ul (4.8-10.8)
[2017-10-07 06:48] LABS: BASOPHILS % 0.4 % (0.0-2.0); EOSINOPHILS # 0.2 10^3/ul (0.0-0.5); EOSINOPHILS % 2.2 % (0.0-7.0); HEMATOCRIT 25.6 % (37.0-47.0); HEMOGLOBIN 8.4 g/dl (12.0-16.0); LYMPHOCYTES # 3.1 10^3/ul (0.8-2.9); LYMPHOCYTES % 39.6 % (15.0-51.0); MEAN CORPUSCULAR HEMOGLOBIN 32.1 pg (29.0-33.0); MEAN CORPUSCULAR HGB CONC 32.8 g/dl (32.0-37.0); MEAN CORPUSCULAR VOLUME 97.7 fl (82.0-101.0); MEAN PLATELET VOLUME 11.8 fl (7.4-10.4); MONOCYTE # 0.7 10^3/ul (0.3-0.9); MONOCYTES % 9.1 % (0.0-11.0); NEUTROPHIL # 3.8 10^3/ul (1.6-7.5); NEUTROPHILS % 48.4 % (39.0-77.0); PLATELET COUNT 280 10^3/UL (140-415); RED BLOOD COUNT 2.62 10^6/ul (4.20-5.40); RED CELL DISTRIBUTION WIDTH 13.6 % (11.5-14.5)
[2017-10-07 07:04] LABS: ANION GAP 11 (8-16); BLOOD UREA NITROGEN 38 mg/dl (7-20); CARBON DIOXIDE 31 mmol/L (21-31); CHLORIDE 104 mmol/L (97-110); CREATININE 1.95 mg/dl (0.44-1.00); GLUCOSE 135 mg/dl (70-220); MAGNESIUM 2.6 mg/dl (1.7-2.5); PHOSPHORUS 5.4 mg/dl (2.5-4.9); POTASSIUM 3.5 mmol/L (3.5-5.1); SODIUM 142 mmol/L (135-144)
[2017-10-07] MEDS: AMLODIPINE 10 MG TAB GTB (09:46)
[2017-10-07] MEDS: ASCORBIC ACID 500 MG TAB GTB (09:47)
[2017-10-07] MEDS: METOPROLOL 50 MG TAB GTB ×2 (09:47→20:40)
[2017-10-07] MEDS: MULTIVIT/CA CARB/B CMPLX/FA TAB PO (09:47)
[2017-10-07] MEDS: LACTOBACILLUS RHAMNOSUS CAP PO ×2 (09:48→20:40)
[2017-10-07] MEDS: FERROUS SULFATE 60 MG/ML 5ML CUP GTB (09:48)
[2017-10-07] MEDS: CHLORHEXIDINE GLUCONATE 15 ML UD CUP MM ×2 (09:49→20:41)
[2017-10-07] MEDS: HEPARIN 5,000 UNIT/0.5 ML VIAL SC ×2 (10:01→20:39)
[2017-10-07] MEDS: INSULIN GLARGINE [LANtus] 3 ML PEN SC (10:01)
[2017-10-08] MEDS: LANSOPRAZOLE 30 MG CAP GTB (05:35)
[2017-10-08] MEDS: INSULIN ASPART [NOVOLOG] 3 ML PEN SC ×4 (05:53→17:26)
[2017-10-08 06:50] LABS: ALBUMIN 3.1 g/dl (3.3-4.9); ANION GAP 12 (8-16); BLOOD UREA NITROGEN 37 mg/dl (7-20); CALCIUM 8.9 mg/dl (8.4-10.2); CARBON DIOXIDE 31 mmol/L (21-31); CHLORIDE 104 mmol/L (97-110); CREATININE 1.88 mg/dl (0.44-1.00); GLUCOSE 139 mg/dl (70-220); MAGNESIUM 2.6 mg/dl (1.7-2.5); PHOSPHORUS 5.7 mg/dl (2.5-4.9); POTASSIUM 3.9 mmol/L (3.5-5.1); SODIUM 143 mmol/L (135-144)
[2017-10-08] MEDS: MULTIVIT/CA CARB/B CMPLX/FA TAB PO (08:22)
[2017-10-08] MEDS: METOPROLOL 50 MG TAB GTB ×2 (08:23→20:39)
[2017-10-08] MEDS: ASCORBIC ACID 500 MG TAB GTB (08:23)
[2017-10-08] MEDS: AMLODIPINE 10 MG TAB GTB (08:23)
[2017-10-08] MEDS: FERROUS SULFATE 60 MG/ML 5ML CUP GTB (08:23)
[2017-10-08] MEDS: CHLORHEXIDINE GLUCONATE 15 ML UD CUP MM ×2 (08:24→20:37)
[2017-10-08] MEDS: LACTOBACILLUS RHAMNOSUS CAP PO ×2 (08:24→20:38)
[2017-10-08] MEDS: HEPARIN 5,000 UNIT/0.5 ML VIAL SC ×2 (08:40→20:38)
[2017-10-08] MEDS: INSULIN GLARGINE [LANtus] 3 ML PEN SC (08:40)
[2017-10-09] MEDS: LANSOPRAZOLE 30 MG CAP GTB (05:08)
[2017-10-09] MEDS: INSULIN ASPART [NOVOLOG] 3 ML PEN SC ×3 (05:32→12:43)
[2017-10-09 07:57] LABS: ANION GAP 11 (8-16); BLOOD UREA NITROGEN 37 mg/dl (7-20); CALCIUM 8.9 mg/dl (8.4-10.2); CARBON DIOXIDE 31 mmol/L (21-31); CHLORIDE 103 mmol/L (97-110); CREATININE 1.88 mg/dl (0.44-1.00); GLUCOSE 148 mg/dl (70-220); MAGNESIUM 2.6 mg/dl (1.7-2.5); PHOSPHORUS 6.1 mg/dl (2.5-4.9); POTASSIUM 3.5 mmol/L (3.5-5.1); SODIUM 141 mmol/L (135-144)
[2017-10-09] MEDS: FERROUS SULFATE 60 MG/ML 5ML CUP GTB (09:22)
[2017-10-09] MEDS: CHLORHEXIDINE GLUCONATE 15 ML UD CUP MM (09:22)
[2017-10-09] MEDS: ASCORBIC ACID 500 MG TAB GTB (09:23)
[2017-10-09] MEDS: LACTOBACILLUS RHAMNOSUS CAP PO (09:23)
[2017-10-09] MEDS: MULTIVIT/CA CARB/B CMPLX/FA TAB PO (09:23)
[2017-10-09] MEDS: METOPROLOL 50 MG TAB GTB (09:23)
[2017-10-09] MEDS: AMLODIPINE 10 MG TAB GTB (09:23)
[2017-10-09] MEDS: HEPARIN 5,000 UNIT/0.5 ML VIAL SC (09:28)
[2017-10-09] MEDS: INSULIN GLARGINE [LANtus] 3 ML PEN SC (09:43)
== END 2017-10-09 17:15 | DRG 871 ==
LOC: E/R 13:46 → MS2 16:33
DX: A41.9 Sepsis, unspecified organism (principal); J18.9 Pneumonia, unspecified organism; G93.49 Other encephalopathy; J96.10 Chronic respiratory failure, unspecified whether with hypoxia or hypercapnia; N17.9 Acute kidney failure, unspecified; Z93.0 Tracheostomy status; E87.0 Hyperosmolality and hypernatremia; E11.22 Type 2 diabetes mellitus with diabetic chronic kidney disease; N18.3 Chronic kidney disease, stage 3 (moderate); N39.0 Urinary tract infection, site not specified; I69.954 Hemiplegia and hemiparesis following unspecified cerebrovascular disease affecting left non-dominant side; D64.89 Other specified anemias; E11.9 Type 2 diabetes mellitus without complications; I10 Essential (primary) hypertension; K59.00 Constipation, unspecified; M81.0 Age-related osteoporosis without current pathological fracture; R41.82 Altered mental status, unspecified; I12.9 Hypertensive chronic kidney disease with stage 1 through stage 4 chronic kidney disease, or unspecified chronic kidney disease; Z98.2 Presence of cerebrospinal fluid drainage device; D63.8 Anemia in other chronic diseases classified elsewhere; Z79.4 Long term (current) use of insulin
CPT/HCPCS: 36415; 36600; 70450; 71045; 74018; 76775; 80048; 80053; 80069; 80150; 81001; 82803; 82962; 83036; 83540; 83605; 83735; 83935; 84100; 84133; 84300; 84484; 85025; 85610; 85730; 87040; 87081; 87086; 93005; 94640; 96365; 96366; 96375; 96376; 97161; 99291-25; J1940